=== PATIENT | female | born 2000 | race Asian ===

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

== ENCOUNTER 2020-01-06 15:39 | Emergency (ER) | payer OTHER ==
[~2020-01-06] VITALS: Ht 162.6 cm; Wt 79.4 kg
[2020-01-06 15:54] VITALS: TEMP 97.8
[2020-01-06 17:02] LABS: POTASSIUM 3.5 mmol/L (3.6-5.2)
[2020-01-06 17:20] LABS: PLATELET COUNT 271 K/uL (152-353)
[2020-01-06 18:46] VITALS: BP 128/71
== END 2020-01-06 18:46 | disposition home or self-care (01) ==
LOC: ED 15:39
PROVIDERS: Family Medicine
DX: N76.0 Acute vaginitis (principal); E87.6 Hypokalemia
CPT/HCPCS: 80053; 81000; 81025; 85027; 87490; 87590; 99283

== ENCOUNTER 2020-08-15 07:38 | Emergency (ER) | payer OTHER ==
[~2020-08-15] VITALS: Ht 162.6 cm; Wt 70.3 kg
[2020-08-15 07:43] VITALS: TEMP 98.3
[2020-08-15 08:48] VITALS: BP 112/69
== END 2020-08-15 08:53 | disposition home or self-care (01) ==
LOC: ED 07:38
DX: R07.89 Other chest pain (principal)
CPT/HCPCS: 96372; 99282; J1885

== ENCOUNTER 2020-12-03 10:42 | Emergency (ER) | payer OTHER ==
[~2020-12-03] VITALS: Ht 162.6 cm; Wt 74.8 kg
[2020-12-03 10:45] VITALS: TEMP 97.1
[2020-12-03 11:58] LABS: PLATELET COUNT 267 K/uL (152-353)
[2020-12-03 12:11] LABS: POTASSIUM 3.8 mmol/L (3.6-5.2)
[2020-12-03 13:15] VITALS: BP 128/66
== END 2020-12-03 13:15 | disposition home or self-care (01) ==
LOC: ED 10:42
PROVIDERS: Family Medicine
DX: N94.6 Dysmenorrhea, unspecified (principal); N39.0 Urinary tract infection, site not specified
CPT/HCPCS: 80053; 81000; 81025; 85027; 87086; 87088; 96372; 99283; J1885

== ENCOUNTER 2021-03-06 15:41 | Emergency (ER) | payer OTHER ==
[~2021-03-06] VITALS: Ht 165.1 cm; Wt 72.6 kg
[2021-03-06 16:18] VITALS: BP 107/77; TEMP 98.9
== END 2021-03-06 16:18 | disposition home or self-care (01) ==
LOC: ED 15:41
DX: S60.812A Abrasion of left wrist, initial encounter (principal); W45.8XXA Other foreign body or object entering through skin, initial encounter; Y92.098 Other place in other non-institutional residence as the place of occurrence of the external cause
CPT/HCPCS: 99282

== ENCOUNTER 2022-09-20 17:18 | Emergency (ER) | payer OTHER ==
[~2022-09-20] VITALS: Ht 165.1 cm; Wt 72.6 kg
[2022-09-20 20:35] VITALS: BP 114/68; TEMP 97.3
== END 2022-09-20 20:35 | disposition home or self-care (01) ==
LOC: ED 17:18
DX: S90.32XA Contusion of left foot, initial encounter (principal); S40.012A Contusion of left shoulder, initial encounter; V89.2XXA Person injured in unspecified motor-vehicle accident, traffic, initial encounter
CPT/HCPCS: 81025; 96372; 99283; J1885